=== PATIENT | female | born 1975 | race Caucasian/White ===

== ENCOUNTER 2017-09-14 16:00 | Emergency (ER) | payer MEDICAID ==
[2017-09-14] MEDS: CEFTRIAXONE 1 GM INJ IM (18:02)
[2017-09-14] MEDS: KETOROLAC 60 MG INJ IM (18:02)
== END 2017-09-14 18:40 | disposition home or self-care (01) ==
LOC: FTE 16:00
DX: L02.31 Cutaneous abscess of buttock (principal)
CPT/HCPCS: 81025; 96372; 99284-25

== ENCOUNTER 2017-09-15 21:09 | Emergency (ER) | payer MEDICAID ==
[2017-09-16] MEDS: HYDROCODONE/APAP (5/325) TAB PO (00:13)
== END 2017-09-16 00:17 | disposition home or self-care (01) ==
LOC: FTE 09-16 00:17
DX: Z48.01 Encounter for change or removal of surgical wound dressing (principal)
CPT/HCPCS: 99283; Z7502